=== PATIENT | male | born 1965 | race Caucasian/White ===

== ENCOUNTER → 2020-01-23 | Outpatient (CLI) | payer OTHER ==
--- NOTE | 2020-01-23 14:33 | XR ---
EXAMINATION TYPE: XR hand complete bilateral DATE OF EXAM: 01/23/2020 COMPARISON: NONE HISTORY: Pain TECHNIQUE: 6 views FINDINGS: There is narrowing and spurring of the second and third MP joints of the right hand. I see no fracture nor dislocation. There are cystic change in the distal right scaphoid bone that could rel ate to old fracture and avascular necrosis. The metacarpals are intact. There are no erosions. There is no subluxation. There is no osteopenia. The IP joint spaces are fairly normal. IMPRESSION: Osteoarthritis in the right MP joints. Degenerative cyst formation in the right carpal cam mirza in the scaphoid lunate and triquetrum. There is probably an old healed fracture of the right scap hoid bone. There is no evidence of inflammatory arthritis.
== END | disposition home or self-care (01) ==
LOC: LABMAIN 13:48
PROVIDERS: ATTEND Family Medicine
DX: M19.041 Primary osteoarthritis, right hand (principal)

== ENCOUNTER → 2021-02-10 | Outpatient (CLI) | payer OTHER ==
--- NOTE | 2021-02-10 15:16 | MR ---
EXAMINATION TYPE: MR knee LT wo con DATE OF EXAM: 02/10/2021 COMPARISON: Plain radiograph 01/13/2021 HISTORY: Left knee pain, history of surgery. TECHNIQUE: Multiplanar, multisequence imaging of the left knee is performed without IV contrast. FINDINGS: MEDIAL MENISCUS: The medial meniscus is diminutive. LATERAL MENISCUS: Anterior and posterior horns are intact without tear. CRUCIATE LIGAMENTS: Patient is status post anterior cruciate ligament repair with graft intact. Poste rior cruciate ligament is intact. COLLATERAL LIGAMENTS: The medial collateral ligament and lateral collateral ligament complex are inta ct and unremarkable. EXTENSOR MECHANISM: Visualized quadriceps and patellar tendons are intact. EFFUSION: There is a small knee joint effusion. POPLITEAL CYST: Small Santiago's cyst is present. TRICOMPARTMENT SPACES: There are full-thickness articular cartilage defects of the medial femoral con dyle and medial tibial plateau with subchondral marrow edema. Partial-thickness articular cartilage d efects are noted in the lateral femoral condyle and lateral tibial plateau (grade 2). There are near full-thickness articular cartilage defects throughout the patella and trochlea (grade 3). BONE MARROW SIGNAL: No focal abnormal marrow signal is appreciated. OTHER: No additional significant abnormality is appreciated. IMPRESSION: 1. Medial meniscus is diminutive, possibly due to prior partial meniscectomy versus re-tear. Arthrogr am could be helpful for further evaluation. 2. Status post ACL repair with graft intact. 3. Small knee joint effusion. 4. Santiago's cyst. 5. Tricompartmental articular cartilage defects are worst in the medial compartment.
== END | disposition home or self-care (01) ==
LOC: RADMRIMAIN 12:46
PROVIDERS: ATTEND Orthopaedic Surgery
DX: M71.22 Synovial cyst of popliteal space [Baker], left knee (principal); M94.8X6 Other specified disorders of cartilage, lower leg; Z98.890 Other specified postprocedural states

== ENCOUNTER 2021-04-13 11:51 | Day surgery (SDC) | payer OTHER ==
[2021-04-12 13:36] VITALS: BMI 27.1
--- NOTE | 2021-04-12 14:21 | HP ---
HISTORY AND PHYSICAL DATE OF SURGERY: 04/13/2021 Christiano Deshpande is a 55-year-old gentleman seen with progressive left knee pain. We discussed options with him. He elected to proceed with left knee arthroscopy. Consent was obtained. PAST MEDICAL HISTORY: Noncontributory. PAST SURGICAL HISTORY: Knee arthroscopy, shoulder arthroscopy. DAILY MEDICATIONS: Ibuprofen. ALLERGIES: PENICILLIN. SOCIAL HISTORY: He smokes one pack of cigarettes daily. PHYSICAL EVALUATION OF THE RIGHT KNEE: His range of motion is zero to 130. There is a mild effusion. Tenderness along the medial joint line. Positive medial Panchito's. Ligaments stable. Hip rotation without pain. Distal neurovascular exam intact. Radiographs of the left knee reveal some osteoarthritic changes, evidence for previous ACL reconstruction. MRI left knee revealed medial meniscal tear, Santiago cyst, osteochondral defects and an intact ACL graft. IMPRESSION: 1. Internal derangement of the left knee with medial meniscal tear and probable osteochondral tear. 2. History of left knee ACL reconstruction. PLAN: Left knee arthroscopy with partial meniscectomy and debridement. MMODL / IJN: [id number] /
[2021-04-13 12:48] VITALS: RESP 16
[2021-04-13] MEDS ORDERED: ONDANSETRON 4 MG/2 ML VIAL ONE (12:50)
[2021-04-13] MEDS ORDERED: LACTATED RINGERS 1,000 ML IV ONE (13:01)
[2021-04-13] MEDS ORDERED: ONDANSETRON 4 MG/2 ML VIAL IVP ONE (13:02)
[2021-04-13] MEDS ORDERED: LIDOCAINE 1% (10MG/ML) FOR IV START INTRADERMA ONE (13:02)
[2021-04-13] MEDS ORDERED: DEXAMETHASONE SOD PHOSPHATE 4 MG/ML 1 ML VIAL IV ONE (13:02)
[2021-04-13] MEDS ORDERED: PROPOFOL 10 MG/ML 20 ML VIAL IV ONE (14:07)
[2021-04-13] MEDS ORDERED: BUPIVACAINE (PF) 0.25% 30 ML VIAL INTRAARTIC ONE ×2 (14:07→14:40)
[2021-04-13] MEDS ORDERED: SUCCINYLCHOLINE CHLORIDE 100 MG/5 ML SYR IV ONE (14:07)
[2021-04-13] MEDS ORDERED: fentaNYL (PF) 50 MCG/ML 2 ML AMP ONE (14:07)
[2021-04-13] MEDS ORDERED: MIDAZOLAM 2 MG/2 ML VIAL ONE (14:07)
[2021-04-13] MEDS ORDERED: PHENYLEPHRINE-0.9% NACL SYG 1,000 MCG/10 ML SYRINGE ONE (14:07)
[2021-04-13] MEDS ORDERED: HYDROmorphone 0.5 MG/0.5 ML SYRINGE IVP ONE ×2 (15:00→15:24)
--- NOTE | 2021-04-13 15:01 | P.OP ---
Date of Procedure: 04/13/21 Preoperative Diagnosis: Internal derangement left knee Postoperative Diagnosis: 1. Complex tear posterior horn medial meniscus left knee 2. 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 Grade 2 chondromalacia patella left knee 4. Reactive synovitis medial, lateral and suprapatellar compartments left knee Procedure(s) Performed: 1. Arthroscopic partial medial meniscectomy left knee 2. Arthroscopic microfracture medial femoral condyle left knee 3. Arthroscopic chondroplasty medial femoral condyle and patella left knee 4. Arthroscopic partial synovectomy medial, lateral and suprapatellar compartments left knee Anesthesia: BRETT, local Surgeon: Richardson Clifton Estimated Blood Loss (ml): 7 Pathology: none sent Condition: stable Disposition: PACU Indications for Procedure: 55-year-old patient seen with progressive left knee pain. After treatment options were discussed, he elected to proceed with arthroscopy. Operative Findings: See description of procedure Description of Procedure: Patient was taken to the operative suite. Patient underwent a general anesthetic by the department of anesthesia. Patient was given preoperative antibiotics. The left lower extremity was placed in a well-padded arthroscopic leg oates. The left leg was prepped and draped in the normal sterile orthopedic fashion. A lateral parapatellar and suprapatellar incision was made. Trochars were inserted. Arthroscopy was initiated. Suprapatellar pouch revealed diffuse thick reactive synovitis. The patellofemoral joint appeared to articulate congruently. There was grade 2 chondromalacia of the patella with some osteochondral flap tears present. The scope was guided into the medial gutter. No loose bodies or plica were identified. The scope was then guided into the medial compartment. A medial parapatellar incision was made. Trocar inserted followed by probe. There was a complex tear involving the posterior horn medial meniscus. There were grade 4 chondral malacia changes of the tibial plateau and an area of grade 4 chondromalacia medial femoral condyle. It was thick reactive synovitis anteriorly. I performed a partial medial meniscectomy getting down to stable meniscal tissue. I performed a chondroplasty of the medial femoral condyle getting down to stable osteochondral tissue. I performed a partial synovectomy decompressing the reactive synovitis. The residual meniscus was stable. There was good decompression of the synovitis. The residual osteochondral surface was stable. There was an area of exposed bone medial femoral condyle. I performed a microfracture to that area penetrating the bone with resultant bleeding at the microfracture site. Scope and probe were then guided into the intercondylar notch. Cruciates were identified, probed and found to be there was some fraying of the anterior aspect of the ACL. I debrided that out. The ACL was probed and found to be stable. The PCL appear stable.. The scope and probe were then guided into lateral compartment. At meniscus was probed and found to be stable. There were grade 1 chondromalacia changes of the lateral femoral condyle without tears. There was thick reactive synovitis anteriorly. I introduced a motorized shaver and performed a partial synovectomy. Shaver was removed. There was good decompression of synovitis. The scope was in guided back into the suprapatellar compartment. And used a motorized shaver into the super patellar compartment. I debrided some piecemeal fragments of meniscus I encountered. I performed a chondroplasty of the patella. I performed a partial synovectomy. Shaver was removed. The residual osteochondral surface of the patella was stable. There was good decompression of synovitis. I now took one more look on the entire knee, no residual debris. Instruments were now removed from the joint. The joint was infiltrated with .25% Marcaine. Steri-Strips were applied to the portal sites. Sterile dressings were applied. The patient was placed into a QUINN hose. No tourniquet was utilized. The patient was awakened, transferred to a bed and taken to recovery stable satisfactory condition.
[2021-04-13 15:02] VITALS: TEMP 97
[2021-04-13] MEDS ORDERED: KETOROLAC 15 MG/ML 1 ML VIAL IVP ONE (15:03)
[2021-04-13] MEDS ORDERED: HYDROcodone/APAP 7.5-325MG 1 EACH TAB ONE (15:45)
[2021-04-13] MEDS ORDERED: HYDROcodone/APAP 7.5-325MG 1 EACH TAB PO ONE (15:46)
[2021-04-13 16:10] VITALS: PULSE 68
[2021-04-13 16:15] VITALS: BP 170/89
== END 2021-04-13 16:18 | disposition home or self-care (01) ==
LOC: OR 11:51
PROVIDERS: ATTEND Orthopaedic Surgery
DX: M23.92 Unspecified internal derangement of left knee (principal); M23.204 Derangement of unspecified medial meniscus due to old tear or injury, left knee; M22.42 Chondromalacia patellae, left knee; M65.862 Other synovitis and tenosynovitis, left lower leg; Z98.890 Other specified postprocedural states; Z79.1 Long term (current) use of non-steroidal anti-inflammatories (NSAID); Z88.0 Allergy status to penicillin; F17.210 Nicotine dependence, cigarettes, uncomplicated
CPT/HCPCS: 29881; 29879; 29876; J2250; J1100; J0690; J2405; J3010; J1885; J2370; J0330; J2704; J1170

== ENCOUNTER 2023-08-01 14:25 | Emergency (ER) | payer OTHER ==
--- NOTE | 2023-08-01 15:01 | ED ---
Headache HPI - General Chief Complaint: Headache Stated Complaint: Fall-Head injury Time Seen by Provider: 08/01/23 14:48 Source: RN notes reviewed, old records reviewed Mode of arrival: ambulatory Limitations: no limitations - History of Present Illness Initial Comments: This 58-year-old male to the ER for evaluation patient concern for headaches after traumatic fall patient having persistent headaches despite being by space and time from the initial injury but is concerned that his injury gave him some sort of brain bleed and is coming in the ER for evaluation of headaches MD Complaint: headache -: week(s) Location: frontal Severity: mild, severe Severity scale (1-10): 10 Quality: aching, throbbing Improves With: nothing Worsens With: none Associated Symptoms: nausea Other Symptoms: other (Headache) Treatments Prior to Arrival: none - Related Data Home Medications Medication Instructions Recorded Confirmed No Known Home Medications 08/01/23 08/01/23 Allergies Allergy/AdvReac Type Severity Reaction Status Date / Time Penicillins Allergy Unknown Verified 08/01/23 16:51 Childhood Review of Systems ROS Statement: Those systems with pertinent positive or pertinent negative responses have been documented in the HPI. ROS Other: All systems not noted in ROS Statement are negative. Past Medical History Past Medical History: No Reported History Additional Past Medical History / Comment(s): torn tendon shoulder History of Any Multi-Drug Resistant Organisms: None Reported Past Surgical History: Hernia Repair, Orthopedic Surgery Additional Past Surgical History / Comment(s): arthroscopies both knees,shoulder Past Anesthesia/Blood Transfusion Reactions: No Reported Reaction Past Psychological History: No Psychological Hx Reported Smoking Status: Current every day smoker - Past Family History Mother Family Medical History: No Reported History General Exam Limitations: no limitations General appearance: alert, in no apparent distress, anxious Head exam: Present: atraumatic, normocephalic, normal inspection Eye exam: Present: normal appearance, PERRL, EOMI. Absent: scleral icterus, conjunctival injection, periorbital swelling ENT exam: Present: normal exam, mucous membranes moist Neck exam: Present: normal inspection. Absent: tenderness, meningismus, lymphadenopathy Respiratory exam: Present: normal lung sounds bilaterally. Absent: respiratory distress, wheezes, rales, rhonchi, stridor Cardiovascular Exam: Present: regular rate, normal rhythm, normal heart sounds. Absent: systolic murmur, diastolic murmur, rubs, gallop, clicks GI/Abdominal exam: Present: soft, normal bowel sounds. Absent: distended, tenderness, guarding, rebound, rigid Extremities exam: Present: normal inspection, full ROM, normal capillary refill. Absent: tenderness, pedal edema, joint swelling, calf tenderness Back exam: Present: normal inspection Neurological exam: Present: alert, oriented X3, CN II-XII intact Psychiatric exam: Present: normal affect, normal mood Skin exam: Present: warm, dry, intact, normal color. Absent: rash Course Vital Signs 08/01/23 08/01/23 14:36 17:34 Temperature 98.2 F 98.6 F Pulse Rate 75 76 Respiratory 16 18 Rate Blood Pressure 182/94 156/88 O2 Sat by Pulse 98 99 Oximetry - Reevaluation(s) Reevaluation #1: Medical record is reviewed Reevaluation #2: Patient symptoms unchanged Reevaluation #3: Patient informed of results questions answered Reevaluation #4: Was pt. sent in by a medical professional or institution (, PA, HOUSING INSPECTORS, urgent care, hospital, or [facility]...) When possible be specific @ -no Did you speak to anyone other than the patient for history (EMS, parent, family, police, friend...)? What history was obtained from this source @ -no Did you review nursing and triage notes (agree or disagree)? Why? @ -agree Are old charts reviewed (outside hosp., previous admission, EMS record, old EKG, old radiological studies, urgent care reports/EKG's, [facility] records)? Report findings @ -yes Differential Diagnosis (chest pain, altered mental status, abdominal pain women, abdominal pain men, vaginal bleeding, weakness, fever, dyspnea, syncope, headache, dizziness, GI bleed, back pain, seizure, CVA, palpatations, mental health, musculoskeletal)? @ -prior EKG interpreted by me (3pts min.). @ -yes X-rays interpreted by me (1pt min.). @ -yes negative for acute disease CT interpreted by me (1pt min.). @ -no U/S interpreted by me (1pt. min.). @ -no What testing was considered but not performed or refused? (CT, X-rays, U/S, labs)? Why? @ -none What meds were considered but not given or refused? Why? @ -none Did you discuss the management of the patient with other professionals (professionals i.e. , PA, HOUSING INSPECTORS, lab, RT, psych nurse, criminal justice social worker, sole leather cutting machine operator, teacher, event security officer, case finisher)? Give summary @ -no Was smoking cessation discussed for >3mins.? @ -no Was critical care preformed (if so, how long)? @ -no Were there social determinants of health that impacted care today? How? (Homelessness, low income, unemployed, alcoholism, drug addiction, transportation, low edu. Level, literacy, decrease access to med. care, correction, rehab)? @ -none Was there de-escalation of care discussed even if they declined (Discuss DNR or withdrawal of care, Hospice)? DNR status @ -no What co-morbidities impacted this encounter? (DM, HTN, Smoking, COPD, CAD, Cancer, CVA, ARF, Chemo, Hep., AIDS, mental health diagnosis, sleep apnea, morbid obesity)? @ -none Was patient admitted / discharged? Hospital course, mention meds given and route, prescriptions, significant lab abnormalities, going to OR and other pertinent info. @ - Undiagnosed new problem with uncertain prognosis? @ -no Drug Therapy requiring intensive monitoring for toxicity (Heparin, Nitro, Insulin, Cardizem)? @ -no Were any procedures done? @ -no Diagnosis/symptom? @ - Acute, or Chronic, or Acute on Chronic? @ -Acute Uncomplicated (without systemic symptoms) or Complicated (systemic symptoms)? @ -Complicated Side effects of treatment? @ -no Exacerbation, Progression, or Severe Exacerbation? @ -exacerbation Poses a threat to life or bodily function? How? (Chest pain, [place], [place], pneumonia, PE, COPD, DKA, ARF, appy, cholecystitis, CVA, Diverticulitis, Homicidal, Suicidal, threat to staff... and all critical care pts) @ -yes for headache Reevaluation #5: Differential Headache: Migraine, tension, cluster, carbon monoxide, central venous thrombosis, pension karma temporal arteritis, acute closure glaucoma, intercranial hemorrhage, mastoiditis, sinusitis, head injury, this is not meant to be an all-inclusive list. Medical Decision Making - Medical Decision Making 58 male to ER for evaluation of headache with significant headache improved here in the ER, patient has no acute findings and can be discharged home - Radiology Data Radiology results: report reviewed (CT brain is negative for acute disease), image reviewed Disposition Clinical Impression: Headache Disposition: HOME SELF-CARE Condition: Good Instructions (If sedation given, give patient instructions): Acute Headache (ED) Is patient prescribed a controlled substance at d/c from ED?: No Referrals: Vivian Baptiste III, MD [Primary Care Provider] - 1-2 days Time of Disposition: 17:50
--- NOTE | 2023-08-01 17:14 | CT ---
EXAMINATION TYPE: CT brain wo con DATE OF EXAM: 08/01/2023 COMPARISON: None HISTORY: headaches after fall and hit head x1 month ago CT DLP: 1150.4 mGycm Automated exposure control for dose reduction was used. FINDINGS: The ventricles, basal cisterns and sulci over convexities are within normal limits and there is no ma ss, mass effect or shift of the midline structures. No abnormal density is seen throughout the brain parenchyma and there is no acute intra or extra-axia l hemorrhage. The posterior fossa including the brainstem, fourth ventricle and cerebellar pontine angles appear no rmal. Intraorbital contents appear normal and symmetric. There is partial opacification of frontal sinuses and ethmoid air cells right significantly greater t coates left. The mastoid air cells well aerated. IMPRESSION: 1. No acute bleed or mass effect. 2. Sinusitis as described above. IMPRESSION:
[2023-08-01 17:56] VITALS: BP 156/88; PULSE 76; RESP 18; TEMP 98.6
== END 2023-08-01 19:01 | disposition home or self-care (01) ==
LOC: EC 14:25
DX: S09.90XA Unspecified injury of head, initial encounter (principal); F17.200 Nicotine dependence, unspecified, uncomplicated; Z88.0 Allergy status to penicillin; W19.XXXA Unspecified fall, initial encounter
CPT/HCPCS: 70450; 99284

== ENCOUNTER → 2024-06-15 | Outpatient (CLI) | payer MEDICARE, OTHER ==
--- NOTE | 2024-06-15 12:10 | CTL ---
EXAMINATION TYPE: CT Low Dose Lung DATE OF EXAM: 06/15/2024 11:36 AM COMPARISON: None. CLINICAL INDICATION: Male, 58 years old with history of Z12.2 LUNG CA SCR F17.210 NICOTINE DEPENDENCE , SMOKER, History of tobacco use. TECHNIQUE: Low Dose CT Lung Screening, Low dose computed tomography scan was performed through the est at 1 millimeter thick sections and reconstructed images in the coronal plane at 1 mm thick sectio ns. IV CONTRAST USED: None. SCREENING VISIT: First visit CT DLP: 126.0 mGycm, Automated exposure control for dose reduction was used. CT CTDI: 3.3 mGy FINDINGS: CT DIAGNOSTIC QUALITY: Satisfactory LUNG NODULES: Not presentLeft lung: no nodules identified.Right lung: no nodules identified. LUNGS: COPD: Severity: None Fibrosis: Severity:None Lymph nodes: None Other findings: None RIGHT PLEURAL SPACE: Effusion: None Calcification: None Thickening: None Pneumothorax: None LEFT PLEURAL SPACE: Effusion: None Calcification: None Thickening: None Pneumothorax: None HEART: Heart Size: Mildly enlarged Coronary calcification: Mild Pericardial effusion: None OTHER FINDINGS: Upper abdomen: No significant abnormality Bony thorax: Degenerative changes Supraclavicular region: No significant abnormalityOther: No significant abnormalityI IMPRESSION: 1. No clinically significant pulmonary nodules. 2. Mild emphysema. CT LUNG RAD AND CT CHEST RECOMMENDATION: Lung-Rad 1 Negative: Continue annual screening with LDCT in 12 months. S Modifier (other clinically significant findings): [facility], , 06/15/2024 12:08 PM
== END | disposition home or self-care (01) ==
LOC: RADCTMAIN 11:04
PROVIDERS: ATTEND Emergency Medicine
DX: Z12.2 Encounter for screening for malignant neoplasm of respiratory organs (principal); F17.210 Nicotine dependence, cigarettes, uncomplicated; J43.9 Emphysema, unspecified
CPT/HCPCS: 71271